=== PATIENT | female | born 2000 | race Asian ===

== ENCOUNTER 2022-11-16 22:49 | Emergency (ER) | payer OTHER, BC ==
[2022-11-17] MEDS ORDERED: Acetaminophen 500 MG TAB ONE (00:02)
== END 2022-11-17 00:57 | disposition home or self-care (01) ==
LOC: ERS 22:49
DX: S62.102A Fracture of unspecified carpal bone, left wrist, initial encounter for closed fracture (principal); V23.49XA Other motorcycle driver injured in collision with car, pick-up truck or van in traffic accident, initial encounter
CPT/HCPCS: 29125; 71045